=== PATIENT | female | born 2005 | race African-American/Black ===

== ENCOUNTER 2024-01-03 21:29 | Emergency (ER) | payer OTHER, SELFPAY ==
--- NOTE | ~2024-01-03 | XR_ITS ---
EXAMINATION: XR ELBOW, LEFT CLINICAL INFORMATION: Trauma COMPARISON: None available. TECHNIQUE: Four views of the left elbow. FINDINGS: The bones and soft tissues are normal. No fracture or joint effusion. Alignment is anatomic. Joint spaces are maintained. XR/XR elbow LT min 3V IMPRESSION: Normal left elbow. Electronically signed by: Rufino Virk MD 01/03/2024 11:40 PM EDT
[2024-01-03 21:57] VITALS: BP 105/55; PULSE 78; RESP 16; TEMP 36.5; O2SAT 100; BMI 20.2
--- NOTE | 2024-01-03 22:40 | ED.EXTPRO ---
HPI - Extremity Problem General Chief complaint: Extremity Injury, Upper Stated complaint: L had/arm inj Time Seen by Provider: 01/03/24 22:19 Source: patient Mode of arrival: ambulatory Limitations: no limitations History of Present Illness ED Provider: JOO HPI Narrative: 18 yo female with no sig PMH here with c/o getting hit in L [place] elbow non dominant hand with field hockey stick. She denies falling. The associate trainer at facility used foam splint and kevon wrap then sling. She arrives here 1.5 hours lateral with throbbing elbow and hand feels colder. On arrival to the room I immediately removed the kevon wrap and the pulses are intact, BCR in all digits, hand started to warm up and temperature improved. MD Complaint: other (elbow injury) Onset (ago): hour(s) (1.5) Pain Consistency: constant Location: left and upper extremity Quality: aching and constant Radiation: none Relieving factors: immobilization Exacerbating factors: range of motion and palpation Associated symptoms: denies other symptoms Context: other (hit with field hockey stick) Related Data Allergies Allergy/AdvReac Type Severity Reaction Status Date / Time Penicillins Allergy Intermediate Rash Verified 01/03/24 22:01 Review of Systems Review of Systems: Constitutional : No Fever, No Chills ENT/Mouth : No Ear Pain, No Hoarseness, No sore throat Eyes: No Eye Pain, No Swelling, No Redness, No Foreign Body Cardiovascular : No Chest Pain, No SOB Respiratory : No Cough, No Dyspnea Gastrointestinal : No Nausea, No Vomiting, No Diarrhea, No abdominal Pain Genitourinary : No Dysuria, No Hematuria Musculoskeletal : positive joint pain, No Myalgias, No Joint Swelling Skin : No Skin lacerations, No rash Neuro : No Weakness, No Numbness, No Loss of Consciousness, No Dizziness, No Headache Psych : No Anxiety/Panic, No Depression Heme/Lymph: no easy bruising, no Lymphadenopathy Endocrine : No Polyuria, No Polydipsia All other systems reviewed and are negative [facility] Past Medical History Attestation statement: The following information was validated with the patient. Source: old records reviewed Medical History No pertinent past medical history Social History Social History (Updated 01/03/24 @ 22:44 by Nelsy Joo, DO) Patient Tobacco Use Status: Never used Tobacco Advance Directives: No Advance Directives Information Provided: No Physical Exam Vital Signs: Vital Signs: Last Vital Signs Temp 97.7 F 01/03/24 21:57 Pulse 78 01/03/24 21:57 Resp 16 01/03/24 21:57 BP 105/55 L 01/03/24 21:57 Pulse Ox 100 01/03/24 21:57 O2 Del Method Room Air 01/03/24 21:57 BMI result Body Mass Index 20.2 Appearance: Alert. Oriented X3. No acute distress. Eyes: Pupils equal, round and reactive to light. ENT: Pharynx normal. Neck: Normal inspection. Neck supple. CVS: Normal heart rate and rhythm. Pulses normal. Respiratory: No respiratory distress. Abdomen: atraumatic Skin: Skin warm and dry. Normal skin color. Extremities: l arm BCR in all digits, 2+ radial pulse, ttp along inner elbow but no joint effusion patient's initial wrap from game was very tight and after removal throbbing pain resolved and cold hand temperature reached symmetric temperature to her R hand Neuro: Oriented X 3. No motor deficit. No sensory deficit. Medical Decision Making Medical Decision Making MDM Narrative: 18 yo female R hand dominant here with L elbow direct trauma from field hockey stick at this time will obtain xray of L elbow doubt dislocation or NV injury she has pulses, full senior ios software engineer, SILT intact, BCR in digits. temperature improved once I removed pre-hospital kevon wrap and splint. Differential Diagnosis Differential Diagnoses: The differential diagnosis associated with the presentation includes contusion, strain, sprain, innapropriate splint application, fracture Admission/Observation Consideration of admission/observation: Escalation of care including admission/observation considered arm is same temperature on both sides safe for DC Independent Interpretation I performed an independent interpretation of an: Plain X-Ray (no fracture) Interpretation: EXAMINATION: XR ELBOW, LEFT CLINICAL INFORMATION: Trauma COMPARISON: None available. TECHNIQUE: Four views of the left elbow. FINDINGS: The bones and soft tissues are normal. No fracture or joint effusion. Alignment is anatomic. Joint spaces are maintained. XR/XR elbow LT min 3V IMPRESSION: Normal left elbow. Radiology Impression Discussion of test interpretation with radiology: I have reviewed the radiologist's reading. Prescription Management I considered prescription management with: Pain Medication Discharge Plan Discharge Clinical Impression: Contusion of bone Patient Disposition: Home, Self-Care Instructions: Bone Bruise (ED) Additional Instructions: follow up with clinical athletic instructor for clearance and PT monitor for increased pain, swelling, numbness of the hand wear sling for comfort for next 3 days then start to range and use gently would limit activities based off pain motrin and tylenol for pain EXAMINATION: XR ELBOW, LEFT CLINICAL INFORMATION: Trauma COMPARISON: None available. TECHNIQUE: Four views of the left elbow. FINDINGS: The bones and soft tissues are normal. No fracture or joint effusion. Alignment is anatomic. Joint spaces are maintained. XR/XR elbow LT min 3V IMPRESSION: Normal left elbow. Stand Alone Forms: Work/School Release Print Language: [place]ican
[2024-01-03 23:53] VITALS: BP 99/57; PULSE 69; RESP 16; TEMP 37; O2SAT 100
[2024-01-04 00:11] VITALS: BP 99/57; PULSE 69; RESP 16; TEMP 37; O2SAT 100
== END 2024-01-04 00:12 | disposition home or self-care (01) ==
PROVIDERS: Emergency Provider Emergency Medicine
DX: S50.02XA Contusion of left elbow, initial encounter (principal); W21.211A Struck by field hockey stick, initial encounter; Y93.65 Activity, lacrosse and field hockey; Y92.328 Other athletic field as the place of occurrence of the external cause; Y99.8 Other external cause status
CPT/HCPCS: 73080; 99283; 99284